=== PATIENT | female | born 1965 | race African-American/Black ===

== ENCOUNTER 2017-06-12 18:09 | Inpatient (IN) | payer SELFPAY ==
[~2017-06-12] VITALS: Ht 154.9 cm; Wt 93.0 kg
[2017-06-12 18:58] LABS: BASOPHILS # (AUTO) 0.03 K/uL (0.00-0.20); BASOPHILS % (AUTO) 0.3 % (0.0-2.0); EOSINOPHILS # (AUTO) 0.16 K/uL (0.00-0.70); EOSINOPHILS % (AUTO) 1.47 % (1.0-6.0); HEMATOCRIT 46.4 % (36-46); HEMOGLOBIN 15.3 g/dL (12.0-16.0); LYMPHOCYTES # (AUTO) 3.5 K/uL (1.0-4.8); LYMPHOCYTES % (AUTO) 31.5 % (22.0-44.0); MEAN CORPUSCULAR HEMOGLOBIN 30.4 pg (26.0-34.0); MEAN CORPUSCULAR VOLUME 92 fL (80-100); MONOCYTES # (AUTO) 0.6 K/uL (0.1-1.0); MONOCYTES % (AUTO) 5.3 % (2.0-9.0); NEUTROPHILS # (AUTO) 6.8 K/uL (1.8-7.7); NEUTROPHILS % (AUTO) 61.5 % (40.0-70.0); PLATELET COUNT (AUTO) 338 K/uL (150-450); RED BLOOD CELL COUNT(AUTO) 5.03 MIL/uL (4.00-5.20); RED CELL DISTRIBUTION WIDTH 13.3 % (11.5-14.5); WHITE BLOOD COUNT (AUTO) 11.1 K/uL (4.5-11.0)
[2017-06-12 19:08] LABS: ANION GAP 10 mmol/L (8-16); CALCIUM, TOTAL 9.3 mg/dL (8.8-10.5); CARBON DIOXIDE 26 mmol/L (22-29); CHLORIDE 102 mmol/L (98-107); CREATININE 0.78 mg/dL (0.60-1.30); GLOMERULAR FILTR. RATE CALC > 60 mL/min (>60); POTASSIUM 3.8 mmol/L (3.5-5.1); SODIUM SERUM 138 mmol/L (136-145); UREA NITROGEN, BLOOD 10 mg/dL (7-18)
[2017-06-12 19:14] LABS: ALANINE AMINOTRANSFERASE 32 U/L (12-78); ALBUMIN 3.9 g/dL (3.4-5.0); ASPARTATE AMINOTRANSFERASE 15 U/L (15-37); BILIRUBIN,TOTAL 0.3 mg/dL (0.1-1.0); TOTAL PROTEIN, SERUM 7.7 g/dL (6.4-8.2)
[2017-06-12] MEDS ORDERED: ASPIRIN 325 MG TABLET PO ONE (20:00)
[2017-06-12] MEDS ORDERED: NITROGLYCERIN 2% (1 GM=INCH) PACKET TP ONE ×2 (20:00)
[2017-06-12] MEDS ORDERED: NITROGLYCERIN 0.4 MG SUBLINGUAL TABLET #25 SL ONE (20:00)
[2017-06-12] MEDS ORDERED: 0.9% SODIUM CHLORIDE 10 ML SYRINGE IVP PRN (20:30)
[2017-06-12] MEDS ORDERED: ONDANSETRON HCL 4 MG/2 ML VIAL IVP PRN ×2 (20:30→21:15)
[2017-06-12] MEDS ORDERED: ACETAMINOPHEN 325 MG TABLET PO PRN (20:30)
[2017-06-12 20:33] LABS: APPEARANCE,URINE CLEAR (CLEAR); GLUCOSE, URINE (UA) NEGATIVE (NEGATIVE); KETONES,URINE NEGATIVE (NEGATIVE); LEUKOCYTE ESTERASE ,URINE NEGATIVE (NEGATIVE); OCCULT BLOOD,URINE NEGATIVE (NEGATIVE); PH,URINE 5.5 (5.0-8.0); PROTEIN,URINE NEGATIVE (NEGATIVE)
[2017-06-12 20:51] LABS: SQUAMOUS EPITHELIAL CELL,UR Few /LPF (None Seen)
[2017-06-12 20:54] LABS: RBC,URINE 0-2 /HPF (0-2); WBC,URINE None Seen /HPF (0-5)
[2017-06-12] MEDS ORDERED: ALBUTEROL SULFATE 2.5 MG/0.5 ML NEB SOLUTION NEB PRN (21:15)
[2017-06-12] MEDS ORDERED: MAGNESIUM HYDROXIDE SUSPENSION 30 ML UDCUP PO PRN (21:15)
[2017-06-12] MEDS ORDERED: ZOLPIDEM TARTRATE 5 MG TABLET PO PRN (21:15)
[2017-06-12 21:21] VITALS: BP 152/79
[2017-06-12] MEDS: LISINOPRIL 10 MG TABLET PO SCH (21:58)
[2017-06-12 23:44] VITALS: BP 142/72
[2017-06-13 03:06] LABS: HEMATOCRIT 41.6 % (36-46); LYMPHOCYTES % (AUTO) 35.2 % (22.0-44.0); MEAN CORPUSCULAR HEMOGLOBIN 30.9 pg (26.0-34.0); MEAN CORPUSCULAR HGB CONC 33.6 G/dL (31.0-37.0); MEAN CORPUSCULAR VOLUME 92 fL (80-100); MONOCYTES % (AUTO) 7.6 % (2.0-9.0); NEUTROPHILS % (AUTO) 54.8 % (40.0-70.0); PLATELET COUNT (AUTO) 306 K/uL (150-450); RED BLOOD CELL COUNT(AUTO) 4.52 MIL/uL (4.00-5.20); RED CELL DISTRIBUTION WIDTH 12.9 % (11.5-14.5); WHITE BLOOD COUNT (AUTO) 9.8 K/uL (4.5-11.0)
[2017-06-13 03:07] LABS: BASOPHILS # (AUTO) 0.06 K/uL (0.00-0.20); BASOPHILS % (AUTO) 0.6 % (0.0-2.0); EOSINOPHILS # (AUTO) 0.18 K/uL (0.00-0.70); EOSINOPHILS % (AUTO) 1.86 % (1.0-6.0); LYMPHOCYTES # (AUTO) 3.4 K/uL (1.0-4.8); MONOCYTES # (AUTO) 0.7 K/uL (0.1-1.0); NEUTROPHILS # (AUTO) 5.3 K/uL (1.8-7.7)
[2017-06-13 03:29] LABS: ALANINE AMINOTRANSFERASE 28 U/L (12-78); ALBUMIN 3.2 g/dL (3.4-5.0); ANION GAP 8 mmol/L (8-16); ASPARTATE AMINOTRANSFERASE 13 U/L (15-37); BILIRUBIN,TOTAL 0.3 mg/dL (0.1-1.0); CALCIUM, TOTAL 8.6 mg/dL (8.8-10.5); CARBON DIOXIDE 27 mmol/L (22-29); CHLORIDE 106 mmol/L (98-107); CHOL/HDL RATIO 8.2 (3.9-5.7); CREATININE 0.86 mg/dL (0.60-1.30); GLOMERULAR FILTR. RATE CALC > 60 mL/min (>60); SODIUM SERUM 141 mmol/L (136-145); TOTAL PROTEIN, SERUM 6.9 g/dL (6.4-8.2); UREA NITROGEN, BLOOD 13 mg/dL (7-18)
[2017-06-13 04:18] VITALS: BP 92/52
[2017-06-13 07:49] VITALS: BP 111/58
[2017-06-13] MEDS: PANTOPRAZOLE SODIUM 40 MG DR TABLET PO SCH (08:05)
[2017-06-13] MEDS: DOCUSATE SODIUM 100 MG CAPSULE PO SCH ×2 (08:05→20:11)
[2017-06-13 11:00] VITALS: BP 107/63
[2017-06-13] MEDS: ACETAMINOPHEN 325 MG TABLET PO PRN (12:02)
[2017-06-13] MEDS: ATORVASTATIN CALCIUM 40 MG TABLET PO SCH (14:32)
[2017-06-13 16:16] VITALS: BP 116/59
[2017-06-13 19:40] VITALS: BP 121/61
[2017-06-13] MEDS: LISINOPRIL 10 MG TABLET PO SCH (20:14)
[2017-06-14] VITALS (7 sets, daily range): BP systolic 95–123; BP diastolic 52–71
[2017-06-14] MEDS: ACETAMINOPHEN 325 MG TABLET PO PRN (04:49)
[2017-06-14] MEDS ORDERED: SESTAMIBI TC99M/UD ISOTOPE 1 EA INJ INJ ONE (10:25)
[2017-06-14] MEDS: ATORVASTATIN CALCIUM 40 MG TABLET PO SCH (10:58)
[2017-06-14] MEDS: PANTOPRAZOLE SODIUM 40 MG DR TABLET PO SCH (10:58)
[2017-06-14] MEDS: DOCUSATE SODIUM 100 MG CAPSULE PO SCH (10:58)
[2017-06-14] MEDS ORDERED: ATOR40TA28 PO (17:32)
[2017-06-14] MEDS ORDERED: LISI-661 PO (17:33)
[2017-06-14] MEDS ORDERED: DOCU-119 PO (17:33)
[2017-06-14] MEDS ORDERED: PANT40TA25 PO (17:34)
== END 2017-06-14 18:15 | disposition home or self-care (01) | DRG 313 ==
LOC: EMS 18:09 → 5N 20:29 → 5S 06-14 02:00
PROVIDERS: ADMIT Internal Medicine; ATTEND Internal Medicine
DX: R07.9 Chest pain, unspecified (principal); E11.65 Type 2 diabetes mellitus with hyperglycemia; E66.9 Obesity, unspecified; E78.5 Hyperlipidemia, unspecified; F17.200 Nicotine dependence, unspecified, uncomplicated; I10 Essential (primary) hypertension; Z90.710 Acquired absence of both cervix and uterus; Z88.5 Allergy status to narcotic agent; Z68.38 Body mass index [BMI] 38.0-38.9, adult
CPT/HCPCS: 78452; 83036; 93005; 93017; 93306; 99285; A9500